=== PATIENT | male | born 1955 | race Caucasian/White ===

== ENCOUNTER 2020-11-02 15:44 | Emergency (ER) | payer BC ==
[2020-11-02] MEDS ORDERED: Heparin Sodium 5,000 Units/ML Vial IVPUSH ONE (15:55)
[2020-11-02] MEDS ORDERED: Heparin Sodium/D5W 25,000 UNITS/500 ML BAG IV SCH (16:00)
[2020-11-02] MEDS ORDERED: Ondansetron 4 MG/2 ML SDV IVPUSH ONE (16:06)
[2020-11-02] MEDS ORDERED: HYDROmorphone 0.5 MG/0.5 ML Syringe IVPUSH ONE ×2 (16:06→18:01)
--- NOTE | 2020-11-02 16:06 | EDM.PDOC ---
ED HPI GENERAL MEDICAL PROBLEM - General Chief Complaint: Cardiovascular Problem Stated Complaint: [facility] Time Seen by Provider: 11/02/20 15:44 Source of Information: Reports: Patient, EMS, Provider, RN Notes Reviewed History Limitations: Reports: No Limitations - History of Present Illness INITIAL COMMENTS - FREE TEXT/NARRATIVE: Patient is a 65-year-old male sent to the emergency department from [facility] due to a large DVT of his left lower extremity. Patient states that his leg started swelling yesterday. He had ultrasound completed at [facility] which shows a clot extending from his iliac down to his toes. Patient denies any previous history of blood clots. He had no chest pain or shortness of breath. Patient has already been accepted for transfer to [facility] in [place], however when he went to get in his truck to take himself there, he became nauseous. He went into the bathroom to vomit and states he almost passed out. He was sent to the emergency department so that he may be transferred to [place] by ambulance. Left Lower Leg Pain Score (Numeric/FACES): 5 - Related Data Allergies Allergy/AdvReac Type Severity Reaction Status Date / Time grass pollen Allergy Other Verified 11/03/20 12:40 Home Meds: Home Meds Dutasteride/Tamsulosin HCl [Dutasteride-Tamsulosin 0.5-0.4] 1 each PO DAILY 11/02/20 [History] Ibuprofen [Motrin] 800 mg PO Q6H PRN 11/02/20 [History] Mometasone/Formoterol [Dulera 200 Mcg/5 Mcg Inhaler] 2 puff IH BID 11/02/20 [History] Potassium Chloride 10 meq PO DAILY 11/02/20 [History] Rosuvastatin [Crestor] 10 mg PO DAILY 11/02/20 [History] Tamsulosin [Tamsulosin 24 Hr] 0.4 mg PO DAILY 11/02/20 [History] hydroCHLOROthiazide [Hydrochlorothiazide] 25 mg PO DAILY 11/02/20 [History] valACYclovir [Valtrex] 1,000 mg PO DAILY 11/02/20 [History] ED ROS GENERAL - Review of Systems Review Of Systems: See Below Constitutional: Reports: No Symptoms HEENT: Reports: No Symptoms Respiratory: Reports: No Symptoms. Denies: Shortness of Breath Cardiovascular: Reports: Edema (left leg pain, swelling, and discoloration.). Denies: Chest Pain Endocrine: Reports: No Symptoms GI/Abdominal: Reports: No Symptoms : Reports: No Symptoms ED EXAM, GENERAL - Physical Exam Exam: See Below General Appearance: Alert, WD/WN, No Apparent Distress Respiratory/Chest: No Respiratory Distress, Lungs Clear, Normal Breath Sounds, No Accessory Muscle Use, Chest Non-Tender Cardiovascular: Normal Peripheral Pulses, Regular Rate, Rhythm, No Gallop, No JVD, No Murmur, No Rub, Other (Edema and purple discoloration to the entire left lower extremity. Pulses are not palpable, however they are present with Doppler. Extremity is cool and tender to touch.) GI/Abdominal: Normal Bowel Sounds, Soft, Non-Tender, No Organomegaly, No Distention, No Abnormal Bruit, No Mass Neurological: Alert, Oriented, CN II-XII Intact, Normal Cognition, Normal Gait, Normal Reflexes, No Motor/Sensory Deficits Psychiatric: Normal Affect, Normal Mood Skin Exam: Warm, Dry, Intact, Normal Color, No Rash Course - Vital Signs Last Recorded V/S: Last Vital Signs Temp 98 F 11/02/20 15:44 Pulse 64 11/02/20 15:44 Resp 21 H 11/02/20 15:44 BP 133/81 11/02/20 15:44 Pulse Ox 96 11/02/20 15:44 - Orders/Labs/Meds Labs: Laboratory Tests 11/02/20 11/02/20 11/02/20 Range/Units 16:00 16:10 16:10 WBC 16.22 H (4.23-9.07) K/mm3 RBC 5.07 (4.63-6.08) M/mm3 Hgb 15.3 (13.7-17.5) gm/dl Hct 46.0 (40.1-51.0) % MCV 90.7 (79.0-92.2) fl MCH 30.2 (25.7-32.2) pg MCHC 33.3 (32.2-35.5) g/dl RDW Std Deviation 46.6 H (35.1-43.9) fL Plt Count 157 L (163-337) K/mm3 MPV 9.4 (9.4-12.3) fl Neut % (Auto) 89.1 H (34.0-67.9) % Lymph % (Auto) 4.3 L (21.8-53.1) % [place] % (Auto) 5.6 (5.3-12.2) % Eos % (Auto) 0.7 L (0.8-7.0) Baso % (Auto) 0.1 (0.1-1.2) % Neut # (Auto) 14.45 H (1.78-5.38) K/mm3 Lymph # (Auto) 0.69 L (1.32-3.57) K/mm3 [place] # (Auto) 0.91 H (0.30-0.82) K/mm3 Eos # (Auto) 0.12 (0.04-0.54) K/mm3 Baso # (Auto) 0.02 (0.01-0.08) K/mm3 Manual Slide Review Abnormal smear PT 11.5 (9.7-12.0) SECONDS INR 1.08 APTT (21.7-31.4) SECONDS Sodium (136-145) mEq/L Potassium (3.5-5.1) mEq/L Chloride (98-107) mEq/L Carbon Dioxide (21-32) mEq/L Anion Gap (5-15) BUN (7-18) mg/dL Creatinine (0.7-1.3) mg/dL Est Cr Clr Drug Dosing mL/min Estimated GFR (MDRD) (>60) mL/min BUN/Creatinine Ratio (14-18) Glucose (80-115) mg/dL Calcium (8.5-10.1) mg/dL Total Bilirubin (0.2-1.0) mg/dL AST (15-37) U/L ALT (16-63) U/L Alkaline Phosphatase (46-116) U/L C-Reactive Protein (<1.0) mg/dL Total Protein (6.4-8.2) g/dl Albumin (3.4-5.0) g/dl Globulin gm/dL Albumin/Globulin Ratio (1-2) SARS-CoV-2 RNA (FABIOLA) Negative (NEGATIVE) 11/02/20 11/02/20 Range/Units 16:10 16:10 WBC (4.23-9.07) K/mm3 RBC (4.63-6.08) M/mm3 Hgb (13.7-17.5) gm/dl Hct (40.1-51.0) % MCV (79.0-92.2) fl MCH (25.7-32.2) pg MCHC (32.2-35.5) g/dl RDW Std Deviation (35.1-43.9) fL Plt Count (163-337) K/mm3 MPV (9.4-12.3) fl Neut % (Auto) (34.0-67.9) % Lymph % (Auto) (21.8-53.1) % [place] % (Auto) (5.3-12.2) % Eos % (Auto) (0.8-7.0) Baso % (Auto) (0.1-1.2) % Neut # (Auto) (1.78-5.38) K/mm3 Lymph # (Auto) (1.32-3.57) K/mm3 [place] # (Auto) (0.30-0.82) K/mm3 Eos # (Auto) (0.04-0.54) K/mm3 Baso # (Auto) (0.01-0.08) K/mm3 Manual Slide Review PT (9.7-12.0) SECONDS INR APTT 24.0 (21.7-31.4) SECONDS Sodium 142 (136-145) mEq/L Potassium 3.8 (3.5-5.1) mEq/L Chloride 105 (98-107) mEq/L Carbon Dioxide 25 (21-32) mEq/L Anion Gap 15.8 H (5-15) BUN 20 H (7-18) mg/dL Creatinine 1.3 (0.7-1.3) mg/dL Est Cr Clr Drug Dosing 56.65 mL/min Estimated GFR (MDRD) 55 (>60) mL/min BUN/Creatinine Ratio 15.4 (14-18) Glucose 145 H (80-115) mg/dL Calcium 8.3 L (8.5-10.1) mg/dL Total Bilirubin 1.0 (0.2-1.0) mg/dL AST 22 (15-37) U/L ALT 29 (16-63) U/L Alkaline Phosphatase 67 (46-116) U/L C-Reactive Protein 0.8 (<1.0) mg/dL Total Protein 6.8 (6.4-8.2) g/dl Albumin 3.7 (3.4-5.0) g/dl Globulin 3.1 gm/dL Albumin/Globulin Ratio 1.2 (1-2) SARS-CoV-2 RNA (FABIOLA) (NEGATIVE) - Re-Assessments/Exams Free Text/Narrative Re-Assessment/Exam: Patient is a 65-year-old male presenting to the emergency department via [facility] from [facility] due to a large DVT in his left lower extremity with onset of nausea and vomiting. He was initially going to go by private vehicle, however he developed the nausea and vomiting and states when he went to vomit he felt like he was going to pass out, therefore EMS was summoned. Patient has already been accepted to [facility] by hospitalist, Dr. Thomas with Dr. Amos, interventional radiologist, consulted. EMS is working on arranging a crew to be able to transfer him. In the meantime, I have ordered blood work including CBC, CMP, CRP, PT/INR, APTT. We will complete a CT angiogram of the chest. I have ordered Dilaudid 0.5 mg IV for pain as well as Zofran 4 mg IV for nausea. Patient will be started on a heparin drip. We are awaiting official ultrasound report from [facility]. 11/02/20 16:29 Ultrasound report received via fax from [facility]. Impression as follows: 1. Large volume of thrombus is demonstrated throughout the entire left-sided venous system with probable extension into the left iliac vein. IR consultation could be considered for possible thrombectomy. 2. No evidence of right-sided DVT. Spoke with [facility]. They would like us to notify them of the results of the CT scan and with when the patient will be leaving as they are still working on getting a bed for him. 11/02/20 17:24 Patient just returned from CT. Called [facility] and spoke with Vane. I would like to send the patient while we wait for the results of the CT scan so she not further delay the transfer. She states that they do not have a better range but they will start looking for the bed and let us know. Hematology Is significant for WBC elevated at 16.22, platelets low at 157, anion gap 15.8, BUN 20. Covid is negative. 11/02/20 1740 The angiogram of the chest shows no evidence of PE. The [facility] has been paged out for transfer. Patient's states that his pain is returning. I ordered a second dose of Dilaudid 0.5 mg IV. Departure - Departure Time of Disposition: 17:25 Disposition: DC/Tfer to [facility] 02 Reason for Transfer *Q: Other Condition: Good Clinical Impression: DVT (deep venous thrombosis) Qualifiers: DVT location: lower extremity Affected thrombotic vein of extremity: unspecified vein of extremity Chronicity: acute Laterality: left Qualified Code(s): I82.402 - Acute embolism and thrombosis of unspecified deep veins of left lower extremity Referrals: Sandra Brady NP [Primary Care Provider] - Forms: ED Department Discharge Sepsis Event Note (ED) - Evaluation Sepsis Screening Result: No Definite Risk
[2020-11-02] MEDS ORDERED: Iopamidol 755 Mg/ML 100 ML Bottle IVPUSH ONE (17:51)
[2020-11-02] MEDS ORDERED: Iopamidol 755 MG/ML 50 ML Bottle IVPUSH ONE (17:51)
[2020-11-02] MEDS ORDERED: Sodium Chloride 0.9% 100 ML IV SCH (18:00)
[2020-11-02] MEDS ORDERED: Sodium Chloride 0.9% 10 ML Syringe FLUSH SCH (18:00)
--- NOTE | 2020-11-02 18:35 | CT ---
CT pulmonary angiogram Technique: Multiple axial sections were obtained from above the lung apices inferiorly through the lung bases. Intravenous contrast was utilized. Study has been performed as a pulmonary angiogram protocol. Findings: Pulmonary arteries are fairly well opacified. No filling defects are seen to indicate pulmonary embolism. Thoracic aorta shows no aneurysm. Small lymph nodes are seen and believed to be within normal limits. No pericardial thickening is seen. Heart is slightly enlarged. Cyst is noted within the left lobe of the liver measuring 1.1 cm in size. Lungs show no acute parenchymal change. No pleural effusions are seen. Bone window settings were reviewed which shows mild scattered degenerative change within the spine. No acute osseous finding is appreciated. Impression: 1. No findings of pulmonary embolism. 2. Heart is slightly enlarged. 3. Nothing acute is appreciated on CT study of the chest. Diagnostic code #2
== END 2020-11-02 18:31 ==
LOC: JD.ED 15:44
DX: I82.402 Acute embolism and thrombosis of unspecified deep veins of left lower extremity (principal); Z20.822 Contact with and (suspected) exposure to COVID-19; Z91.048 Other nonmedicinal substance allergy status; Z79.899 Other long term (current) drug therapy
CPT/HCPCS: 36415; 71275; 80053; 85025; 85610; 85730; 86140; 87635; 96365; 96366; 96375; 96376; 99285; J1170; J1644; J2405; Q9967; 99284; U0002

== ENCOUNTER 2023-12-04 15:10 | Emergency (ER) | payer MEDICARE ==
[2023-12-04 17:16] LABS: BASOPHILS PERCENT AUTO 0.3 % (0.0-1.0); EOSINOPHILS ABSOLUTE AUTO 0.2 K/mm3 (0.0-0.4); EOSINOPHILS PERCENT AUTO 2.1 % (0.0-6.0); HEMATOCRIT 47.2 % (42.0-52.0); HEMOGLOBIN 15.9 gm/dl (14.0-18.0); IMMATURE GRAN ABSOLUTE AUTO 0.02 K/mm3 (0.00-0.05); IMMATURE GRAN PERCENT AUTO 0.3 % (0.0-0.4); LYMPHOCYTES ABSOLUTE AUTO 0.9 K/mm3 (1.0-4.8); LYMPHOCYTES PERCENT AUTO 11.8 % (24.0-44.0); MEAN CORPUSCULAR HEMOGLOBIN 30.2 pg (28.0-32.0); MEAN CORPUSCULAR HGB CONC 33.7 g/dl (32.0-36.0); MEAN CORPUSCULAR VOLUME 89.7 fl (83.0-99.0); MEAN PLATELET VOLUME 8.6 fl (9.4-12.4); MONOCYTES ABSOLUTE AUTO 0.7 K/mm3 (0.0-0.8); MONOCYTES PERCENT AUTO 9.3 % (0.0-8.0); NEUTROPHILS ABSOLUTE AUTO 5.8 K/mm3 (1.8-7.7); NEUTROPHILS PERCENT AUTO 76.2 % (41.0-71.0); PLATELET COUNT,PLT 174 K/mm3 (150-400); RED BLOOD CELL COUNT 5.26 M/mm3 (4.52-5.90); WHITE BLOOD CELL COUNT,WBC 7.54 K/mm3 (3.9-11.3)
[2023-12-04 17:35] LABS: INR 1.04; PROTHROMBIN TIME 11.1 SECONDS (9.7-12.0)
[2023-12-04 17:42] LABS: A/G RATIO 0.9 (1-2); ALBUMIN 3.4 g/dl (3.4-5.0); ANION GAP 11.4 (5-15); BILIRUBIN TOTAL 1.7 mg/dL (0.2-1.0); BUN/CREATININE RATIO 14.2 (14-18); CALCIUM 8.8 mg/dL (8.5-10.1); CREATININE 1.2 mg/dL (0.7-1.3); EST CRCL DRUG DOSING (CG) 58.92 mL/min; POTASSIUM,K 3.4 mEq/L (3.5-5.1)
[2023-12-04] MEDS: Apixaban 5 MG Tab PO ONE (18:18)
== END 2023-12-04 18:22 | disposition home or self-care (01) ==
LOC: JD.ED 15:10
DX: I82.442 Acute embolism and thrombosis of left tibial vein (principal); Z91.018 Allergy to other foods; Z79.899 Other long term (current) drug therapy
CPT/HCPCS: 36415; 80053; 85025; 85610; 93971; 99284; A9270